=== PATIENT | female | born 1990 | race African-American/Black ===

== ENCOUNTER 2018-06-15 12:30 | Day surgery (SDC) | payer BC, OTHER ==
[2018-06-11 12:19] VITALS: BMI 38.6
[2018-06-15] MEDS ORDERED: ACETAMINOPHEN INJECTION 100 ML IVPB ONE (15:07)
[2018-06-15] MEDS ORDERED: MIDAZOLAM HCL 2 MG/2 ML SINGLE DOSE VIAL ONE (15:07)
[2018-06-15] MEDS ORDERED: LIDOCAINE 1%/EPI 1:100000 (20 ML MULTI DOSE VIAL) ONE (15:11)
[2018-06-15] MEDS ORDERED: BUPIVACAINE HCL/PF 2.5 MG/ML - 30 ML VIAL IJ ONE (15:11)
[2018-06-15] MEDS ORDERED: ceFAZolin SODIUM 1 GM VIAL ONE (15:15)
[2018-06-15] MEDS ORDERED: DEXAMETHASONE SOD PHOSPHATE 4 MG/1 ML VIAL ONE (15:15)
[2018-06-15] MEDS ORDERED: ONDANSETRON 4 MG/2 ML VIAL ONE (15:15)
[2018-06-15] MEDS ORDERED: PROPOFOL 20 ML ONE ×2 (15:16)
[2018-06-15] MEDS ORDERED: LIDOCAINE HCL/PF 2% SDV 5ML VIAL ONE (15:16)
[2018-06-15] MEDS ORDERED: fentaNYL CITRATE 250 MCG/5 ML VIAL ONE (15:16)
[2018-06-15] MEDS ORDERED: ONDANSETRON 4 MG/2 ML VIAL IVPUSH PRN (15:31)
[2018-06-15] MEDS ORDERED: oxyCODONE HCL 5 MG TABLET PO PRN (15:31)
[2018-06-15] MEDS ORDERED: KETOROLAC TROMETHAMINE 30 MG/1 ML VIAL ONE (15:53)
[2018-06-15] MEDS ORDERED: LACTATED RINGERS SOLUTION 1,000 ML IV SCH (16:30)
[2018-06-15] MEDS ORDERED: HYDROmorphone HCL/PF 1 MG/ML AMP ONE (16:37)
[2018-06-15] MEDS ORDERED: BACITRACIN 15 GM TUBE TOPICAL OINTMENT ONE (17:13)
[2018-06-15] MEDS ORDERED: SUCCINYLCHOLINE CHLORIDE 200 MG/10 ML VIAL ONE (17:15)
--- NOTE | 2018-06-15 18:09 | OP ---
Operative Note - Note: Operative Date: 06/15/18 Pre-Operative Diagnosis: Hradenitis Suppurativa- Right Inframammary fold, Left Lower Abdomen, Bilateral Inguinal Creases Operation: Excision of Multiple Areas of Infected Hiradenitis Suppurativa with Debridements and Closures Post-Operative Diagnosis: Same as Pre-op Surgeon: Weston Wilder Anesthesia: General Operative Report Dictated: Yes
[2018-06-15 18:48] VITALS: TEMP 98.5
[2018-06-15 19:29] VITALS: BP 131/68; PULSE 79
--- NOTE | 2018-06-15 23:26 | OP ---
DATE OF OPERATION: 06/15/2018 PREOPERATIVE DIAGNOSIS: Hydradenitis suppurativa of the right inframammary fold, left lower abdomen, and bilateral inguinal creases. POSTOPERATIVE DIAGNOSIS: Hydradenitis suppurativa of the right inframammary fold, left lower abdomen, and bilateral inguinal creases. PROCEDURE PERFORMED: Excision and debridement of multiple areas of infected hydradenitis suppurativa with layered closure. SURGEON: Weston Ocampo MD ANESTHESIA: General via LMA. BRIEF HISTORY: The patient is well-known to me with multiple areas of hydradenitis suppurativa and has had multiple local debridements and excisions. She now presents again with infected and draining sinuses in the medial aspect of the right inframammary fold, the left side of the lower abdominal crease, and both inguinal creases posterolateral to the vagina. PROCEDURE: The patient was on the operating table in the supine position and general anesthesia was administered by the anesthesiologist. The area of the chest and abdomen were prepped and draped in the usual sterile fashion. The right breast region was approached first. The infected area was outlined with a surgical marker and was infiltrated with a solution of 1% lidocaine with epinephrine mixed with 0.25% Marcaine. Incision was made as marked using a number 15 scalpel blade and carried down sharply through the subcutaneous tissues. It became clear that the infected lesions beneath tracked inferiorly and more medially than appreciated from the surface, so additional debridement and excision was performed. Once all obviously infected and inflamed tissues were removed, tissues were undermined both inferiorly and superiorly to facilitate closure. Tissues were advanced and closed in layered fashion. Deep tissue was closed with number 3-0 Biosyn suture in interrupted buried fashion. Skin was closed with both 4-0 Prolene in continuous subcuticular fashion and multiple 5-0 nylon sutures in interrupted fashion. A similar procedure was performed at the lower abdominal crease to the left of midline where an elliptical incision was similarly made. Infected tissues here also tracked beyond what was obvious from the surface and additional excision was performed. Closure was performed in a similar fashion. The patient was then moved in position and placed into gynecologic stirrups to facilitate excision of regions in the inguinal creases posteriorly just lateral to the vaginal opening. These areas were similarly elliptically excised and deep necrotic tissues were removed. These regions were closed in layered fashion similarly to the other incisions. Sterile dressings were then applied and the patient was awoken from anesthesia without any difficulty. She was taken from the operating room to the recovery room in satisfactory condition, having tolerated the procedure well. WESTON OCAMPO M.D. /[id number]
--- NOTE | 2018-06-18 18:11 | PATH ---
Surgical Pathology Report Patient Name: MARYLOU WADDELL [facility]. Rec. #: [id number] /Age/Gender: 1990 (Age: 28) / F Account: [id number] Location: [facility] AMBUL[facility]ORY Taken: 06/15/2018 Received: 06/15/2018 Reported: 06/18/2018 Physicians: Weston Wilder M.D. Specimen(s) Received A: HYDRADENITIS SUPPORTIVA LOWER ABDOMINAL FOLD B: HYDRADENITIS SUPPORTIVA INFRAMAMMARY FOLD C: HYDRADENITIS SUPPORTIVA RIGHT GROIN CREASE D: HYDRADENITIS SUPPORTIVA LEFT GROIN CREASE Clinical History Hidradenitis suppurativa Final Diagnosis A. HIDRADENITIS SUPPURATIVA, LOWER ABDOMINAL FOLD, RESECTION: SEGMENT OF SKIN WITH HYDRADENITIS SUPPURATIVA. B. HIDRADENITIS SUPPURATIVA, INFRAMAMMARY FOLD, RESECTION: SEGMENT OF SKIN WITH HYDRADENITIS SUPPURATIVA. C. HIDRADENITIS SUPPURATIVA, RIGHT GROIN CREASE, RESECTION: SEGMENT OF SKIN WITH HYDRADENITIS SUPPURATIVA. D. HIDRADENITIS SUPPURATIVA, LEFT GROIN CREASE, RESECTION: SEGMENT OF SKIN WITH HYDRADENITIS SUPPURATIVA. Electronically Signed iVolet Reed M.D. Gross Description A. Received in formalin labeled "hidradenitis suppurativa lower abdominal fold," is a 2.3 x 0.4 cm brown, elliptical, unoriented portion of skin excised to a depth of 0.7 cm. The epidermal surface displays a central, linear invagination. Sectioning reveals staples-yellow parenchyma. Well Shooter sections are submitted in one cassette. B. Received in formalin labeled "hidradenitis suppurativa inframammary fold," are 3 brown, irregular, unoriented portions of skin with underlying soft tissue ranging from 1.5 x 0.2 x 0.2 cm to 5.0 x 1.3 x 1.2 cm. The epidermal surface of the largest portion displays focal nodules. Sectioning reveals staples-yellow parenchyma. Well Shooter sections are submitted in 2 cassettes. C. Received in formalin labeled "hidradenitis suppurativa right groin crease," is a 2.6 x 1.6 cm brown, elliptical, unoriented portion of skin excise to depth of 1.0 cm. The epidermal surface is focally nodular. Sectioning reveals staples-yellow parenchyma. Well Shooter sections are submitted in one cassette. D. Received in formalin labeled "hidradenitis suppurativa left groin crease," is a 3.0 x 1.0 cm brown, elliptical, unoriented portion of skin excise to depth of 0.9 cm. The epidermal surface displays a central, linear invagination. Sectioning reveals staples-yellow parenchyma. Well Shooter sections are submitted in one cassette. 06/17[facility]
== END 2018-06-15 19:30 | disposition home or self-care (01) ==
LOC: FASU 12:30
PROVIDERS: ATTEND Plastic Surgery
PROC: 0JB80ZZ Excision of Abdomen Subcutaneous Tissue and Fascia, Open Approach (ICD-10-PCS; 2018-06-15)
PROC: 0JBD0ZZ Excision of Right Upper Arm Subcutaneous Tissue and Fascia, Open Approach (ICD-10-PCS; 2018-06-15)
PROC: 0JBC0ZZ Excision of Pelvic Region Subcutaneous Tissue and Fascia, Open Approach (ICD-10-PCS; principal; 2018-06-15 15:57)
DX: L73.2 Hidradenitis suppurativa (principal)
CPT/HCPCS: 84703; 88304-TC; 94760; J0131